=== PATIENT | female | born 1995 | race Caucasian/White ===

== ENCOUNTER 2017-01-04 17:53 | Emergency (ER) | payer OTHER ==
[~2017-01-04] VITALS: Ht 165.1 cm; Wt 109.3 kg
[2017-01-04] MEDS ORDERED: BENADRYL ALLERG25 M1 PO (18:23)
[2017-01-04] MEDS ORDERED: KEFLEX500 MG ORAL (18:23)
[2017-01-04] MEDS ORDERED: PREDNISONE20 MG ORAL (18:23)
--- NOTE | 2017-01-04 18:29 | Emergency Room Report ---
History of Present Illness General Chief Complaint: Skin Rash/Abscess Source: Patient Present Illness HPI Patient present with complaints of multiple bites on her body Specifically on the left dorsal hand Proximal wrist Upper chest area Patient reports that she was at urgent care And sent to the emergency room Patient reports that recently she has been getting a lot of that but bites She also has rheumatoid arthritis and has been considered immunocompromised Therefore after being seen at urgent care patient was sent to the emergency room patient also reports that he had discussed the possible IV antibiotic dosage in the ER the area is otherwise fairly puritic No obvious streaking Allergies: Coded Allergies: AZITHROMYCIN (Verified Allergy, Unknown, 01/04/17) Patient History Past Medical History: see triage record Pertinent Family History: none Last Menstrual Period: 01/04/17 Now: No Reviewed Nursing Documentation: PMH: Agreed, PSxH: Agreed Nursing Documentation-PMH Past Medical History: No History, Except For Review of Systems All Other Systems: negative except mentioned in HPI Physical Exam Vital Signs Date Time Temp Pulse Resp B/P Pulse Ox O2 Delivery O2 Flow Rate FiO2 01/04/17 18:19 98.8 74 16 122/79 100 Room Air Sp02 EP Interpretation: reviewed, normal General Appearance: well appearing, no apparent distress Head: normocephalic, atraumatic Eyes: bilateral eye EOMI, bilateral eye PERRL ENT: hearing grossly normal, normal pharynx, TMs + canals normal, uvula midline Neck: supple, thyroid normal Respiratory: normal breath sounds, no rhonchi Cardiovascular #1: regular rate, rhythm, no edema Musculoskeletal: normal inspection Neurologic: alert, oriented x3, responsive, 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 The areas in question appeared to have questionable early cellulitis, however likely reaction to histamine release no obvious fluctuance Lymphatic: no adenopathy Medical Decision Making Diagnostic Impression: Primary Impression: insect bite ER Course Given the history exam refer to the skin exam for full specifics I did not feel the patient required IV therapy for this presentation patient will be placed on oral prednisone and Benadryl I did also prescribe antibiotics for preventive reasons with question of also possible early cellulitis Patient will have initial conservative outpatient trial and return with any worsening symptoms Last Vital Signs Date Time Temp Pulse Resp B/P Pulse Ox O2 Delivery O2 Flow Rate FiO2 01/04/17 18:19 98.8 74 16 122/79 100 Room Air Status: improved Disposition: HOME, SELF-CARE Condition: Stable Scripts Prednisone* (PREDNISONE*) 20 Mg Tablet 20 MG ORAL BID, #8 TAB Prov: JANIS TRUJILLO D.O. 01/04/17 Diphenhydramine Hcl (BENADRYL ALLERGY) 25 Mg Tablet 25 MG PO BID, #24 TAB Prov: JANIS TRUJILLO D.O. 01/04/17 Cephalexin* (KEFLEX*) 500 Mg Capsule 500 MG ORAL Q6H, #28 CAP 0 Refills Prov: JANIS TRUJILLO D.O. 01/04/17 Patient Instructions: Insect Bite, [id number] Additional Instructions: Patient is provided with the discharge instructions notified to follow up with primary doctor in the next 2-3 days otherwise return to the er with any worsening symptoms. Please note that this report is being documented using [employer] technology. This can lead to erroneous entry secondary to incorrect interpretation by the dictating instrument. JANIS TRUJILLO D.O. Jan 04, 2017 18:28
[2017-01-04] MEDS ORDERED: PredniSONE 20mg tab ORAL ONE (18:30)
[2017-01-04] MEDS ORDERED: Cephalexin 500mg cap ORAL ONE (18:30)
[2017-01-04 19:14] VITALS: BP 120/75
[2017-01-04 19:15] VITALS: BP 120/75
== END 2017-01-04 19:15 | disposition home or self-care (01) ==
LOC: EMR 18:40
DX: S60.869A Insect bite (nonvenomous) of unspecified wrist, initial encounter (principal); S20.362A Insect bite (nonvenomous) of left front wall of thorax, initial encounter; W57.XXXA Bitten or stung by nonvenomous insect and other nonvenomous arthropods, initial encounter; Y92.9 Unspecified place or not applicable; Z88.1 Allergy status to other antibiotic agents
CPT/HCPCS: 99284